=== PATIENT | male | born 1995 | race African-American/Black ===

== ENCOUNTER 2017-11-05 04:21 | Emergency (ER) | payer SELFPAY ==
[2017-11-05] MEDS: ONDANSETRON ODT 4 MG TAB.RAPDIS. PO (04:56)
[2017-11-05] MEDS: IV NORMAL SALINE 1000ML BAG 1,000 ML IV (04:57)
== END 2017-11-05 05:41 | disposition home or self-care (01) ==
LOC: ER 04:21
DX: A08.4 Viral intestinal infection, unspecified (principal); J45.909 Unspecified asthma, uncomplicated; F12.10 Cannabis abuse, uncomplicated; Z91.041 Radiographic dye allergy status
CPT/HCPCS: 96360; 99284-25; J7030; Q0162